=== PATIENT | female | born 2000 | race African-American/Black ===

== ENCOUNTER 2021-06-22 18:15 | Emergency (ER) | payer MEDICAID ==
[~2021-06-22] VITALS: Ht 160 cm; Wt 59.0 kg
[2021-06-22 20:35] VITALS: BP 110/68
== END 2021-06-22 20:52 | disposition home or self-care (01) ==
LOC: ER 18:15
DX: O26.892 Other specified pregnancy related conditions, second trimester (principal); Z3A.17 17 weeks gestation of pregnancy
CPT/HCPCS: 76805; 81025; 99284

== ENCOUNTER 2022-05-08 17:21 | Emergency (ER) | payer MEDICAID ==
[~2022-05-08] VITALS: Ht 162.6 cm; Wt 54.0 kg
[2022-05-08 17:40] VITALS: BP 111/69
== END 2022-05-08 18:58 | disposition left against medical advice (07) ==
LOC: ER 17:21
DX: Z53.21 Procedure and treatment not carried out due to patient leaving prior to being seen by health care provider (principal)